=== PATIENT | female | born 1975 ===

== ENCOUNTER 2023-02-22 10:10 | Observation (INO) | payer SELFPAY ==
[~2023-02-22] VITALS: Ht 148 cm; Wt 59.0 kg
[~2023-02-22 10:10] MED LIST: AC325T PO; ACHD5005 PO; AMOX500C2 PO; ASP81TEC PO; BUTA1TAB55 PO; CLN150C PO; CPR500T PO; DCS100C PO; DICY20TA57 PO; ERT250T PO; HYDR-3583 PO; HYDR1CAP3 PO; IBUP-15 PO; METR250T PO; PRM25T PO; SULF1TAB38 PO; TRAM50TA2 PO
[2023-02-22] MEDS ORDERED: RT-Ipratropium/Albuterol NEB 3 ML VIAL ONE ×2 (10:19→10:38)
[2023-02-22] MEDS ORDERED: RT-ALBUTEROL SULF 2.5 MG/3 ML PRE-MIX VIAL ONE (10:38)
[2023-02-22] MEDS ORDERED: RT-ALBUTEROL SULF 2.5 MG/3 ML PRE-MIX VIAL INH STA (10:40)
[2023-02-22] MEDS ORDERED: MAGNESIUM 1 GM/100 ML IVPB 100 ML IV ONE ×2 (10:45→13:15)
[2023-02-22] MEDS ORDERED: RT-Ipratropium/Albuterol NEB 3 ML VIAL INH ONE ×3 (10:45)
[2023-02-22] MEDS ORDERED: RT-ALBUTEROL SULF 2.5 MG/3 ML PRE-MIX VIAL INH ONE (10:45)
[2023-02-22] MEDS ORDERED: methylPREDNISolone INJ 125 MG VIAL IVP ONE (10:45)
[2023-02-22 11:06] LABS: BASOPHILS # (AUTO) 0.1 10^3/uL (0.0-0.1); BASOPHILS % (AUTO) 1 % (0-10); EOSINOPHILS # (AUTO) 1.1 10^3/uL (0.0-0.3); EOSINOPHILS % (AUTO) 10 % (0-10); HEMATOCRIT 40 % (35-52); LYMPHOCYTES % (AUTO) 43 % (12-44); MEAN CORPUSCULAR HEMOGLOBIN 29 pg (25-34); MEAN CORPUSCULAR HGB CONC 35 g/dL (32-36); MEAN CORPUSCULAR VOLUME 85 fL (80-99); MEAN PLATELET VOLUME 10.2 fL (9.0-12.2); MONOCYTES # (AUTO) 0.6 10^3/uL (0.0-1.0); MONOCYTES % (AUTO) 5 % (0-12); NEUTROPHILS # (AUTO) 4.8 10^3/uL (1.8-7.8); NEUTROPHILS % (AUTO) 41 % (42-75); PLATELET COUNT 295 10^3/uL (130-400); WHITE BLOOD COUNT 11.6 10^3/uL (4.3-11.0)
[2023-02-22 11:17] LABS: ALBUMIN 4.1 GM/DL (3.2-4.5)
[2023-02-22 11:18] LABS: POTASSIUM 3.4 MMOL/L (3.6-5.0)
[2023-02-22 11:19] LABS: CALCIUM 9.1 MG/DL (8.5-10.1)
[2023-02-22 11:22] LABS: BILIRUBIN,TOTAL 2.2 MG/DL (0.1-1.0)
[2023-02-22 11:24] LABS: CREATININE SERUM 0.73 MG/DL (0.60-1.30)
[2023-02-22 11:26] LABS: MAGNESIUM 1.9 MG/DL (1.6-2.4)
--- NOTE | 2023-02-22 11:33 | ED General ---
General Chief Complaint: Respiratory Problems Stated Complaint: ASTHMA Nursing Triage Note: TRAFFIC CONTROL OFFICER LINE USED, PT STATES HX OF ASTHMA, WAS IN [place] ABOUT 3 MONTHS AGO, WENT TO THE CLINIC 2 WKS AGO AND GOT AN INHALER BUT IT'S NOT WORKING WELL, 90% ON ROOM AIR ON ARRIVAL Source of Information: Patient, Family, Sample Mounter Exam Limitations: Language Barrier History of Present Illness Date Seen by Provider: Feb 22, 2023 Time Seen by Provider: 10:19 Initial Comments This 47-year-old woman presents to the emergency room with 2 weeks of worsening shortness of breath and wheezing. She has a history of asthma and has had to receive dexamethasone injections in the past. The last episode was about 8 months ago in [place]. She has been in the [place] for about 4 months now. She went to the walk-in clinic at [facility] at some point in the last 2 weeks and received an inhaler and a nebulizer machine. She is also taking Primatene Mist. She reports these therapies do help some but they also cause nausea and do not provide sufficient relief of shortness of breath. She denies any other significant health problems. She is afebrile at present but thought she had subjective fever yesterday. She also has some cough and is bringing up some sputum. She does not have an established local primary care provider. She is [place]-speaking. Interview was conducted with the assistance of a language line dry boss and her bilingual son. She has a very tight audible wheezing during the interview and oxygen saturations are 90 to 91% on room air. Nasal cannula oxygen was applied. Allergies and Home Medications Allergies Coded Allergies: No Known Drug Allergies (Unverified , 06/06/09) Patient Home Medication List Home Medication List Reviewed: Yes Albuterol Sulfate (Ventolin Hfa) 1 Puff Puff, 2 PUFF INH Q4H PRN for SHORTNESS OF BREATH, (Reported) Entered as Reported by: JESSIKA CALHOUN on 02/23/23 1509 Last Action: Reviewed Fluticasone Propionate (Flovent Hfa 44 mcg) 44 Mcg Aero, 2 PUFF IH BID, (Reported) Entered as Reported by: JESSIKA CALHOUN on 02/23/23 1509 Last Action: Reviewed Ipratropium/Albuterol Sulfate (Iprat-Albut 0.5-3(2.5) mg/3 ml) 0.5 Mg-3 Mg (2.5 Mg Base)/3 Ml Ampul.neb, 3 ML IH Q6H PRN for SHORTNESS OF BREATH, (Reported) Entered as Reported by: JESSIKA CALHOUN on 02/23/23 0869 Last Action: Reviewed Review of Systems Review of Systems Constitutional: no symptoms reported EENTM: no symptoms reported Respiratory: see HPI Cardiovascular: no symptoms reported Gastrointestinal: see HPI Genitourinary: no symptoms reported : No Musculoskeletal: no symptoms reported Skin: no symptoms reported Psychiatric/Neurological: No Symptoms Reported Hematologic/Lymphatic: No Symptoms Reported Past Qmwbjpj-Nomzfw-Hdgwmg Hx Patient Social History Tobacco Use?: No Substance use?: No Alcohol Use?: No Past Medical History Surgery/Hospitalization HX: ASTHMA Surgeries: Yes (Surgery for either gallstones or kidney stones) Appendectomy Respiratory: Yes Asthma Cardiac: No Neurological: No : No Reproductive Disorders: No Genitourinary: No Gastrointestinal: No Musculoskeletal: No Endocrine: No Diabetes, Non-Insulin dep HEENT: No Cancer: No Psychosocial: No Family Medical History No Pertinent Family Hx Physical Exam Vital Signs Vital Signs - First Documented 02/22/23 02/22/23 10:19 10:48 Temp 36.9 Pulse 112 Resp 32 B/P (MAP) 129/90 (103) Pulse Ox 98 O2 Delivery Nasal Cannula O2 Flow Rate 4.00 Capillary Refill : Less Than 3 Seconds Height, Weight, BMI Height: 5'" Weight: 130lbs. oz. 58.531255cu; 26.00 BMI Method:Stated General Appearance: WD/WN, Moderate Distress HEENT: PERRL/EOMI, Normal ENT Inspection, Pharynx Normal Neck: Normal Inspection Respiratory: Lungs Clear, Normal Breath Sounds, No Accessory Muscle Use Cardiovascular: No Edema, Tachycardia (regular, sinus tachycardia on monitoring coordinator) Gastrointestinal: Non Tender, Soft Extremity: Normal Inspection, Non Tender, No Calf Tenderness, No Pedal Edema Neurologic/Psychiatric: Alert, Oriented x3, No Motor/Sensory Deficits, Normal Mood/Affect, magnetic resonance imaging director II-XII Norm as Tested Skin: Normal Color, Warm/Dry Progress/Results/Core Measures Suspected Sepsis SIRS Temperature: Pulse: 112 Respiratory Rate: 32 Laboratory Tests 02/22/23 11:00: White Blood Count 11.6H Blood Pressure 129 /90 Mean: 103 Laboratory Tests 02/22/23 11:00: Creatinine 0.73, Platelet Count 295, Total Bilirubin 2.2H Results/Orders Lab Results Laboratory Tests Test 02/22/23 10:50 02/22/23 11:00 Range/Units Influenza Type A (RT-PCR) Not Detected Not Detecte Influenza Type B (RT-PCR) Not Detected Not Detecte SARS-CoV-2 RNA (RT-PCR) Not Detected Not Detecte White Blood Count 11.6 H 4.3-11.0 10^3/uL Red Blood Count 4.76 3.80-5.11 10^6/uL Hemoglobin 14.0 11.5-16.0 g/dL Hematocrit 40 35-52 % Mean Corpuscular Volume 85 80-99 fL Mean Corpuscular Hemoglobin 29 25-34 pg Mean Corpuscular Hemoglobin Concent 35 32-36 g/dL Red Cell Distribution Width 13.4 10.0-14.5 % Platelet Count 295 130-400 10^3/uL Mean Platelet Volume 10.2 9.0-12.2 fL Immature Granulocyte % (Auto) 0 % Neutrophils (%) (Auto) 41 L 42-75 % Lymphocytes (%) (Auto) 43 12-44 % Monocytes (%) (Auto) 5 0-12 % Eosinophils (%) (Auto) 10 0-10 % Basophils (%) (Auto) 1 0-10 % Neutrophils # (Auto) 4.8 1.8-7.8 10^3/uL Lymphocytes # (Auto) 5.0 H 1.0-4.0 10^3/uL Monocytes # (Auto) 0.6 0.0-1.0 10^3/uL Eosinophils # (Auto) 1.1 H 0.0-0.3 10^3/uL Basophils # (Auto) 0.1 0.0-0.1 10^3/uL Immature Granulocyte # (Auto) 0.1 0.0-0.1 10^3/uL Sodium Level 139 135-145 MMOL/L Potassium Level 3.4 L 3.6-5.0 MMOL/L Chloride Level 108 H 98-107 MMOL/L Carbon Dioxide Level 21 21-32 MMOL/L Anion Gap 10 5-14 MMOL/L Blood Urea Nitrogen 9 7-18 MG/DL Creatinine 0.73 0.60-1.30 MG/DL Estimat Glomerular Filtration Rate 103 BUN/Creatinine Ratio 12 Glucose Level 140 H 70-105 MG/DL Calcium Level 9.1 8.5-10.1 MG/DL Corrected Calcium 9.0 8.5-10.1 MG/DL Magnesium Level 1.9 1.6-2.4 MG/DL Total Bilirubin 2.2 H 0.1-1.0 MG/DL Aspartate Amino Transf (AST/SGOT) 82 H 5-34 U/L Alanine Aminotransferase (ALT/SGPT) 103 H 0-55 U/L Alkaline Phosphatase 62 40-136 U/L C-Reactive Protein High Sensitivity 0.96 H 0.00-0.50 MG/DL B-Type Natriuretic Peptide < 10.0 <100.0 PG/ML Total Protein 8.0 6.4-8.2 GM/DL Albumin 4.1 3.2-4.5 GM/DL Serum Test, Qualitative NEGATIVE NEGATIVE My Orders Orders - LEE GUY MD Ipratropium/Albuterol Inh Soln (Ipratrop (02/22/23 10:19) Ipratropium/Albuterol Inh Soln (Ipratrop (02/22/23 10:45) Svn Small Volume Nebulizer (02/22/23 10:40) Albuterol Pre-Mix Nebs (Rt) (Albuterol (02/22/23 10:40) Ipratropium/Albuterol Inh Soln (Ipratrop (02/22/23 10:45) Svn Small Volume Nebulizer (02/22/23 10:40) Svn Small Volume Nebulizer (02/22/23 10:40) Ipratropium/Albuterol Inh Soln (Ipratrop (02/22/23 10:38) Albuterol Pre-Mix Nebs (Rt) (Albuterol (02/22/23 10:38) Ipratropium/Albuterol Inh Soln (Ipratrop (02/22/23 10:45) Svn Small Volume Nebulizer (02/22/23 10:40) Albuterol Pre-Mix Nebs (Rt) (Albuterol (02/22/23 10:45) Svn Small Volume Nebulizer (02/22/23 10:40) Bnp [place] (02/22/23 10:42) Cbc And Automated Diff (02/22/23 10:42) Comprehensive Metabolic Panel (02/22/23 10:42) Hs C Reactive Protein (02/22/23 10:42) Hcg,Qualitative Serum (02/22/23 10:42) Magnesium (02/22/23 10:42) Methylprednisolone Sod Succ (Methylpredn (02/22/23 10:45) Magnesium 1 Gm/100 Ml Ivpb (Magnesium 1 (02/22/23 10:45) Covid 19 Inhouse Test (02/22/23 10:42) Influenza A And B By Pcr (02/22/23 10:42) Chest Pa/Lat (2 View) (02/22/23 11:33) Magnesium 1 Gm/100 Ml Ivpb (Magnesium 1 (02/22/23 13:15) Ed Admission (Communication) (02/22/23 13:50) Medications Given in ED Vital Signs/I&O 02/22/23 02/22/23 10:19 10:48 Temp 36.9 Pulse 112 Resp 32 B/P (MAP) 129/90 (103) Pulse Ox 98 93 O2 Delivery Nasal Cannula O2 Flow Rate 4.00 Capillary Refill : Less Than 3 Seconds Blood Pressure Mean: 103 Progress Note : Progress Note Ligia was interviewed and examined shortly after arrival with the assistance of dry boss and bilingual son. DuoNeb was administered with minimal improvement. Magnesium sulfate 1 g and Solu-Medrol 125 mg were then administered along with an hour-long nebulizer treatment. She was re-examined and found to be improved but still have wheezing. A second dose of magnesium sulfate 1 g was administered. O2 sat was stable on 2 L nc after these treatments. Chest x-rays were viewed by me and I appreciated not acute abnormalities by my interpretation. The radiologist's report also noted not acute abnormalities. Labs were interpreted by me. No clinically relevant abnormalities were appreciated with the CBC, CMP, CRP, BNP, or serum test. Flu and COVID testing were negative. Case discussed with Dr. Delgado, admitting hospitalist who accepted admission. Patient was also agreeable. Diagnostic Imaging Diagonstic Imaging: Xray Plain Films/CT/US/NM/MRI: chest Comments NAME: LIGIA AUSTIN MED REC#: [id number] PT STATUS: REG ER : 1975 PHYSICIAN: LEE GUY MD ADMIT DATE: 02/22/23/ER Signed Date of Exam:02/22/23 CHEST PA/LAT (2 VIEW) CLINICAL INDICATION: Patient with cough, fever, and shortness of air. EXAM: Chest x-ray PA and lateral views. COMPARISON: Chest x-ray dated 03/05/2013. FINDINGS: Lungs/pleura: Lungs are clear. There is no pneumothorax. There is no pleural effusion. Mediastinum: Unremarkable. Pulmonary vasculature: Unremarkable. Heart: Unremarkable. Bones/extrathoracic soft tissue: There are degenerative spurs involving the thoracic spine. There is mild right curvature of the thoracic spine.. IMPRESSION: There is no radiographic evidence of acute cardiopulmonary process. Dictated by: Dictated on workstation # [id number] Dict: 02/22/23 1219 Trans: 02/22/23 1404 [facility] [id number] Interpreted by: KIRSTIN OJEDA MD Electronically signed by: KIRSTIN OJEDA MD 02/22/23 1404 Departure Communication (Admissions) Time/Spoke to Admitting Phy: 13:25 Dr. Delgado Impression Primary Impression: Asthma exacerbation Qualified Codes: J45.901 - Unspecified asthma with (acute) exacerbation Additional Impression: Hypoxia Disposition: 09 ADMITTED INPATIENT Condition: Improved Admissions Decision to Admit Reason: Admit from ER (General) Decision to Admit/Date: Feb 22, 2023 Time/Decision to Admit Time: 13:25 Departure-Patient Inst. Referrals: [facility] ([place]P/Family) Primary Care Physician LEE UGY MD Feb 22, 2023 11:33
--- NOTE | 2023-02-22 12:36 | Diagnostic Imaging Report ---
CLINICAL INDICATION: Patient with cough, fever, and shortness of air. EXAM: Chest x-ray PA and lateral views. COMPARISON: Chest x-ray dated 03/05/2013. FINDINGS: Lungs/pleura: Lungs are clear. There is no pneumothorax. There is no pleural effusion. Mediastinum: Unremarkable. Pulmonary vasculature: Unremarkable. Heart: Unremarkable. Bones/extrathoracic soft tissue: There are degenerative spurs involving the thoracic spine. There is mild right curvature of the thoracic spine.. IMPRESSION: There is no radiographic evidence of acute cardiopulmonary process. Dictated by: Dictated on workstation # [id number]
[2023-02-22 14:32] VITALS: BP 108/69
[2023-02-22 15:40] VITALS: BP 126/76
[2023-02-22 16:00] VITALS: BP 126/76
[2023-02-22] MEDS ORDERED: LACTULOSE SYRUP 10GM/15ML 30ML UDC PO PRN (16:00)
[2023-02-22] MEDS ORDERED: ANTACID SUSPENSION 30 ML UDC PO PRN (16:00)
[2023-02-22] MEDS ORDERED: diphenhydrAMINE INJ 50 MG/ML VIAL IVP PRN (16:00)
[2023-02-22] MEDS ORDERED: CALCIUM CARBONATE 500 MG CHEW TABLET PO PRN (16:00)
[2023-02-22] MEDS ORDERED: MELATONIN 3 MG TABLET PO PRN (16:00)
[2023-02-22] MEDS ORDERED: BISACODYL 10 MG SUPPOSITORY PR PRN (16:00)
[2023-02-22] MEDS ORDERED: diphenhydrAMINE 25 MG TABLET PO PRN (16:00)
[2023-02-22] MEDS ORDERED: ONDANSETRON INJECTION 4 MG/2 ML (SDV) IV PRN (16:00)
[2023-02-22] MEDS ORDERED: MILK OF MAGNESIA 400 MG/5 ML 30 ML UDC PO PRN (16:00)
[2023-02-22] MEDS ORDERED: ONDANSETRON 4 MG ORAL DISSOLVE TABLET PO PRN (16:00)
[2023-02-22] MEDS ORDERED: RT-ALBUTEROL SULF 2.5 MG/3 ML PRE-MIX VIAL INH PRN ×2 (16:15→21:45)
[2023-02-22] MEDS: ENOXAPARIN 40 MG/0.4 ML SYRINGE SC SCH (16:18)
[2023-02-22] MEDS: methylPREDNISolone INJ 125 MG VIAL IVP SCH ×2 (16:18→23:32)
[2023-02-22] MEDS: ACETAMINOPHEN 325 MG TABLET PO PRN (16:18)
[2023-02-22 19:42] VITALS: BP 121/63
[2023-02-22] MEDS: DOCUSATE SODIUM 100 MG CAPSULE PO SCH (19:43)
[2023-02-22] MEDS: SENNOSIDES 8.6 MG TABLET PO SCH (19:43)
[2023-02-22] MEDS ORDERED: RT-ALBUTEROL SULF 2.5 MG/3 ML PRE-MIX VIAL INH SCH (21:00)
[2023-02-23] VITALS (7 sets, daily range): BP systolic 101–121; BP diastolic 57–76
[2023-02-23] MEDS: RT-ALBUTEROL SULF 2.5 MG/3 ML PRE-MIX VIAL INH SCH ×6 (01:31→22:03)
[2023-02-23] MEDS: ACETAMINOPHEN 325 MG TABLET PO PRN ×3 (03:37→16:10)
[2023-02-23] MEDS: methylPREDNISolone INJ 125 MG VIAL IVP SCH ×4 (05:14→23:10)
[2023-02-23] MEDS: DOCUSATE SODIUM 100 MG CAPSULE PO SCH ×2 (07:58→19:22)
[2023-02-23] MEDS: SENNOSIDES 8.6 MG TABLET PO SCH ×2 (07:58→19:22)
[2023-02-23] MEDS: KETOROLAC INJ 30 MG/ML VIAL IVP PRN ×3 (08:00→19:57)
[2023-02-23 08:46] LABS: ALBUMIN 4.1 GM/DL (3.2-4.5)
[2023-02-23 08:47] LABS: POTASSIUM 3.7 MMOL/L (3.6-5.0)
[2023-02-23 08:48] LABS: CALCIUM 9.1 MG/DL (8.5-10.1)
[2023-02-23 08:49] LABS: TOTAL PROTEIN 7.9 GM/DL (6.4-8.2)
[2023-02-23 08:51] LABS: BILIRUBIN,TOTAL 1.4 MG/DL (0.1-1.0)
[2023-02-23 08:53] LABS: CREATININE SERUM 0.77 MG/DL (0.60-1.30)
[2023-02-23] MEDS ORDERED: IPRA3AMP31 IH (15:09)
[2023-02-23] MEDS ORDERED: RT-ALBUINH INH (15:09)
[2023-02-23] MEDS ORDERED: FLT4413 IH (15:09)
[2023-02-23] MEDS: IBUPROFEN 600 MG TABLET PO SCH ×2 (16:09→23:10)
[2023-02-23] MEDS: ENOXAPARIN 40 MG/0.4 ML SYRINGE SC SCH (16:09)
--- NOTE | 2023-02-23 17:08 | History & Physical-Hospitalist ---
History of Present Illness HPI/Chief Complaint Ligia Da Silva is a 47 year old female with PMH asthma who presented with shortness of breath. She also has cough. She has taken Dexamethasone in the past prescribed in [place]. She has been using Albuterol but it has not been helping. She reports subjective fevers. She denies chest pain. She has had nausea. Source: patient, family Exam Limitations: language barrier (family interprets) Date Seen 02/23/23 Time Seen by a Provider: 12:30 Attending Physician [facility] PCP Admitting Physician: Elida Alanis MD Attending Physician: Elida Alanis MD Referring Physician Date of Admission Feb 22, 2023 at 14:11 Home Medications & Allergies Home Medications Reviewed patient Home Medication Reconciliation performed by pharmacy medication reconciliations electrical technician and/or nursing. Patients Allergies have been reviewed. Allergies Allergies Coded Allergies No Known Drug Allergies (Unverified06/06/09) Past Ycwszye-Bofexx-Dhqynv Hx Patient Social History Tobacco Use?: No Use of E-Cig and/or Vaping dev: No Substance use?: No Alcohol Use?: No Pt feels they are or have been: No Immunizations Up To Date Tetanus Booster (TDap): Unknown Hepatitis A: No Hepatitis B: No Current Status status: No status: No Communicates: Verbally Primary Language: Bahamian Preferred Spoken Language: Bahamian Is interpretation needed?: Yes Past Medical History Surgeries: Appendectomy Asthma Diabetes, Non-Insulin dep Family Medical History No Pertinent Family Hx Review of Systems Constitutional: fever, malaise Respiratory: cough, short of breath Cardiovascular: no symptoms reported Gastrointestinal: nausea Physical Exam Physical Exam Vital Signs Vital Signs - First Documented 02/22/23 02/22/23 10:19 10:48 Temp 36.9 Pulse 112 Resp 32 B/P (MAP) 129/90 (103) Pulse Ox 98 O2 Delivery Nasal Cannula O2 Flow Rate 4.00 Capillary Refill : Less Than 3 Seconds Height, Weight, BMI Height: 5'" Weight: 130lbs. oz. 58.253745yf; 26.93 BMI Method:Stated General Appearance: No Apparent Distress, WD/WN, Anxious HEENT: PERRL/EOMI, Pharynx Normal Neck: Normal Inspection, Supple Respiratory: Lungs Clear, No Respiratory Distress Cardiovascular: No Murmur, Tachycardia Gastrointestinal: Normal Bowel Sounds, Soft Extremity: Normal Inspection, No Pedal Edema Neurologic/Psychiatric: Alert, No Motor/Sensory Deficits, Normal Mood/Affect Skin: Normal Color, Warm/Dry Results Results/Procedures Labs Laboratory Tests 02/22/23 11:00 02/23/23 06:11 Patient resulted labs reviewed. Imaging: Reviewed Imaging Report Assessment/Plan Admission Diagnosis Acute asthma exacerbation Admission Status: Observation Assessment and Plan Acute asthma exacerbation Acute respiratory failure with hypoxia Steroids Duonebs MAT protocol Supplemental oxygen as needed Hyperglycemia Possibly steroid induced Check A1C Sliding scale insulin Elevated LFTs Improving Monitor DVT prophylaxis: Lovenox Diagnosis/Problems Diagnosis/Problems (1) Acute asthma exacerbation Status: Acute Qualifiers: Asthma severity: severe Asthma persistence: persistent Qualified Codes: J45.51 - Severe persistent asthma with (acute) exacerbation (2) Acute respiratory failure with hypoxia Status: Acute (3) Hyperglycemia Status: Acute (4) Elevated LFTs Status: Acute ELIDA ALANIS MD Feb 23, 2023 17:08
[2023-02-23] MEDS: inSUlin ASPART 1 UNIT/0.01 ML (PER UNIT) SC SCH (19:58)
[2023-02-24] MEDS: RT-ALBUTEROL SULF 2.5 MG/3 ML PRE-MIX VIAL INH SCH ×3 (02:59→10:34)
[2023-02-24 03:46] VITALS: BP 102/62
[2023-02-24] MEDS: methylPREDNISolone INJ 125 MG VIAL IVP SCH (05:58)
[2023-02-24] MEDS: IBUPROFEN 600 MG TABLET PO SCH ×2 (05:58→11:19)
[2023-02-24] MEDS: inSUlin ASPART 1 UNIT/0.01 ML (PER UNIT) SC SCH ×2 (05:58→11:15)
[2023-02-24 07:50] VITALS: BP 106/67
[2023-02-24] MEDS: DOCUSATE SODIUM 100 MG CAPSULE PO SCH ×2 (08:13→09:06)
[2023-02-24] MEDS: SENNOSIDES 8.6 MG TABLET PO SCH ×2 (08:14→09:06)
[2023-02-24] MEDS: ACETAMINOPHEN 325 MG TABLET PO PRN (09:10)
[2023-02-24] MEDS ORDERED: predniSONE 20 MG TABLET PO ONE (09:30)
[2023-02-24] MEDS ORDERED: metFORMIN 500 MG TABLET PO ONE (09:30)
[2023-02-24 11:11] VITALS: BP 111/73
[2023-02-24] MEDS ORDERED: IPRA3AMP31 IH (11:33)
[2023-02-24] MEDS ORDERED: PRED10TA22 PO (11:33)
[2023-02-24] MEDS ORDERED: METF-397 PO (11:33)
[2023-02-24 11:51] VITALS: BP 111/73
--- NOTE | 2023-02-24 18:59 | Discharge Summary ---
Discharge Summary Hospital Course Problems/Dx: (1) Acute asthma exacerbation Status: Acute Qualifiers: Qualified Codes: J45.51 - Severe persistent asthma with (acute) exacerbation (2) Acute respiratory failure with hypoxia Status: Acute (3) Hyperglycemia Status: Acute (4) Elevated LFTs Status: Acute (5) T2DM (type 2 diabetes mellitus) Status: Acute Qualifiers: Qualified Codes: E11.65 - Type 2 diabetes mellitus with hyperglycemia Hospital Course Date of Admission: Feb 22, 2023 at 14:11 Admission Diagnosis : Acute respiratory failure due to asthma exacerbation [facility] Date [facility]: 02/24/23 Discharge Diagnosis: Acute respiratory failure due to asthma exacerbation, diabetes Hospital Course: Ligia Da Silva is a 47 year old female who presented with shortness of breath and was admitted with asthma exacerbation. She was requiring oxygen initially but this resolved. She was treated with steroids and breathing treatments and improved. She was hyperglycemia and a hemoglobin A1C was 7.2%. She was started on Metformin. She will also complete a steroid taper. She needs to establish with a primary care physician and was set up to establish care at [facility]. She was discharged home in stable condition. Labs and Pending Lab Test: Laboratory Tests 02/23/23 19:47: Glucometer 460*H 02/24/23 05:17: Glucometer 328H 02/24/23 10:52: Glucometer 431*H Home Meds Active Prednisone 10 Mg Tab.ds.pk 10 Mg PO DAILY Take 6 tabs(60mg)daily,decrease by 1 tab(10mg)every other day. Metformin HCl 500 Mg Tablet 500 Mg PO DAILY@ 30 Days Iprat-Albut 0.5-3(2.5) mg/3 ml (Ipratropium/Albuterol Sulfate) 0.5 Mg-3 Mg (2.5 Mg Base)/3 Ml Ampul.neb 3 Ml IH Q6H PRN 30 Days Reported Flovent Hfa 44 mcg (Fluticasone Propionate) 44 Mcg Aero 2 Puff IH BID LAST FILLED 12-30-2022 #1/ DAY SUPPLY Ventolin Hfa (Albuterol Sulfate) 1 Puff Puff 2 Puff INH Q4H PRN Assessment/Pt Instructions see instructions Discharge Planning: >30 minutes discharge planning Discharge Instructions Discharge Diet: ADA Diet Activity as Tolerated: Yes Discharge Physical Examination Vital Signs Vital Signs Date Time Temp Pulse Resp B/P (MAP) Pulse Ox O2 Delivery O2 Flow Rate FiO2 02/24/23 11:51 36.5 119 18 111/73 93 Room Air 0.00 General Appearance: No Apparent Distress, WD/WN Respiratory: Lungs Clear, No Respiratory Distress Cardiovascular: No Murmur, Tachycardia Gastrointestinal: Normal Bowel Sounds, Soft Extremity: Normal Inspection, No Pedal Edema Skin: Normal Color, Warm/Dry Neurologic/Psychiatric: Alert, Normal Mood/Affect Allergies: Coded Allergies: No Known Drug Allergies (Unverified , 06/06/09) Copy Copies To 1: [facility] [place] Summary Date of Admission Feb 22, 2023 at 14:11 Date of Discharge Feb 24, 2023 at 12:18 Discharge Date: Feb 24, 2023 Discharge Time: 12:18 Admission Diagnosis Acute asthma exacerbation Discharge Diagnosis Acute asthma exacerbation Acute respiratory failure with hypoxia T2DM Elevated LFTs (1) Acute asthma exacerbation Status: Acute Qualifiers: Qualified Codes: J45.51 - Severe persistent asthma with (acute) exacerbation (2) Acute respiratory failure with hypoxia Status: Acute (3) Hyperglycemia Status: Acute (4) Elevated LFTs Status: Acute (5) T2DM (type 2 diabetes mellitus) Status: Acute Qualifiers: Qualified Codes: E11.65 - Type 2 diabetes mellitus with hyperglycemia UVALDO ALANIS MD Feb 24, 2023 18:59
[2023-02-25] MEDS ORDERED: metFORMIN 500 MG TABLET PO SCH (07:00)
== END 2023-02-24 12:18 | disposition home or self-care (01) ==
LOC: EDUNIT# 10:10 → ER 10:14 → 4TH 14:11
PROVIDERS: ADMIT Internal Medicine; ATTEND Internal Medicine
DX: J45.51 Severe persistent asthma with (acute) exacerbation (principal); J96.01 Acute respiratory failure with hypoxia; E11.65 Type 2 diabetes mellitus with hyperglycemia; R79.89 Other specified abnormal findings of blood chemistry
CPT/HCPCS: 36415; 71046; 80053; 82947; 83036; 83735; 83880; 84703; 85025; 86141; 87636; 94640; 94760; 96372; 96375; 96376; G0378